=== PATIENT | male | born 1960 | race Caucasian/White ===

== ENCOUNTER 2016-06-24 15:11 | Outpatient (CLI) | payer BC ==
[~2016-06-24] VITALS: Ht 165.1 cm; Wt 74.1 kg
[2016-06-24 15:20] VITALS: BP 119/71; PULSE 88; RESP 18; Ht 165.1 cm; Wt 74.1 kg
[2016-06-24] MEDS ORDERED: ASPI-664 PO (15:20)
[2016-06-24] MEDS ORDERED: ATOR80TA75 PO (15:20)
[2016-06-24] MEDS ORDERED: AMLO-147 PO (15:20)
--- NOTE | 2016-06-24 15:37 | PN ---
Date/Time of Note Date/Time of Note DATE: 06/24/16 TIME: 15:33 Outpatient Progress Note Chief Complaint Hypertension/hyperlipidemia HPI Hypertension/no headache or dizziness, no local focal weakness, patient was recently hospitalized with the uncontrolled hypertension, patient medication has been changed, patient control now, Hyperlipidemia/no xanthoma, on medication, side effect of medication, Review of Systems Const: No Fever, no chills, no Wt. loss, no Fatigue, normal appetite, no diaphoresis. Eyes: No pain, no discharge, no redness, no visual change, no foreign body. ENT: No pain, no bleeding, no congestion, no sore throat, no dysphagia, no discharge or rhinitis. Lymph: No adenopathy, no tender nodes, no lymphedema. Resp: No SOB, no cough, no sputum, no wheezing, no chest pain. CV: No chest pain, no palpitaions, no MAY, no PND, no edema. GI: Normal appetite, no pain, no nausea, no vomiting, no diarrhea, no blood, no constipation. : No frequency, no urgency, no dysuria, no hematuria, no flank pain, no discharge, no bleeding. Musc: No bone/joint pain, no back pain, no neck pain, no knee pain, no restricted ROM. Skin: No rash, no skin lesions, no erythema, no laceration, no bruising, no pruritus. Neuro: No ALVARADO, no dizziness, no syncope, no seizure, no focal-weakness. Endo: No polyuria, no polydypsia, no dry-skin, no temp-intolerance. Psych: No hallucinations, no depression, no anxiety, no suicidal ideation. Ext: No edema, no pain, no ulcer, no weakness. Physical Exam Vital Signs Date Time Temp Pulse Resp B/P Pulse Ox O2 Delivery O2 Flow Rate FiO2 06/24/16 15:20 97.4 88 18 119/71 97 Room Air General Appearance: A [56 year-old [male who appears well-developed, well- nourished, in no acute distress. HEENT: Head normocephalic, atraumatic. Pupils equal, round, reactive to light and accommodate. Sclerae are no jaundice. Nasal turbinates pink without erythema or nasal discharge. Mucous membranes pink and moist without lesions. Oropharynx clear without any exudate or discharge. NECK: Supple. Trachea midline, No thyromegaly, No cervical lymphadenopathy, No mass, No carotid bruits, No JVD, Carotid pulses 2+ bilaterally. PULMONARY: Clear to auscultaion bilaterally, No retractions, Chest expansion symmetric bilaterally, no rales, no ronchi, no dulness on percussion. CARDIAC: Normal SI and S2, Regular rate and rythm, no murmur, gallop, or rub. GASTROINTESTINAL: Abdomen is soft, non-tender, Non Rigid, No distention, Positive bowel sounds x4 quadrants, Liver normal. SKIN: Warm, dry, no rash, no bruise, no echmosis. EXTREMITIES: Bilateral lower extremities normal, no edema, no phlabitus, pulse palpable, no contracture. MUSCULOSKELETAL: Spine Normal, Non-tender, Normal range of motion, No swelling, no deformity, no clubbing, or cyanosis, the patient has no edema to bilateral lower extremities, dorsalis pedis pulses palpable bilaterally. NEUROLOGIC: The patient is awake, alert, oriented, responding to yes/no questions appropriately, moving all extremities, cranial nerve intact, normal strenght, normal power, normal coordination, normal gait. Allergies Coded Allergies: No Known Drug Allergies (Verified Allergy, Unknown, 06/24/16) PMH Hypertension/hyperlipidemia Social Hx No smoking or drinking, Family Hx Mother diabetic, Assessment/Plan Impression Hypertension/hyperlipidemia Plan Patient blood pressure under control at present, patient on Norvasc 10 mg daily, Patient also on aspirin 81 mg daily, Patient on Lipitor 80 mg daily, Do not have complete records from the hospital, will try to get records from [facility], Patient education done about a blood pressure, will repeat the lab in 2 weeks, Patient encouraged to follow with the primary care physician, Medications Home Meds Reported Medications Atorvastatin* (Atorvastatin*) 80 Mg Tablet, 80 MG PO QHS, #30 TAB 06/24/16 Aspirin (Low Dose Aspirin) 81 Mg Tablet., 81 MG PO DAILY, #30 TAB 06/24/16 Amlodipine Besylate* (Amlodipine Besylate*) 10 Mg Tablet, 10 MG PO DAILY, #30 TAB 06/24/16 STACIA WHITT MD Jun 24, 2016 15:36
== END 2016-06-24 17:00 | disposition home or self-care (01) ==
LOC: DCC 15:11
PROVIDERS: ATTEND Internal Medicine
DX: I10 Essential (primary) hypertension (principal); E78.5 Hyperlipidemia, unspecified
CPT/HCPCS: G0463